=== PATIENT | male | born 1945 | race Caucasian/White ===

== ENCOUNTER 2017-02-08 08:25 | Day surgery (SDC) | payer OTHER, MEDICARE ==
[~2017-02-08] VITALS: Ht 195.6 cm; Wt 102.1 kg
[~2017-02-08 08:25] MED LIST: ACID CONTROL150 MG PO; ADALAT CC 30 MG30 MG PO; ALLOPURINOL300 MG PO; BENADRYL25 MG PO; BUDEPRION SR150 MG PO; CLONAZEPAM0.5 MG PO; COUMADIN1 MG PO; COUMADIN5 MG PO; CYCLOBENZAPRINE10 MG PO; CYMBALTA60 MG PO; DAILY MULTIPLE1 EACH PO; HYDROCHLOROTHIA25 MG PO; IRON325 M1 PO; MELOXICAM15 MG PO; MINIPRESS1 MG PO; MOTRIN800 MG PO; NAPROXEN375 MG PO; NIFEDIAC CC30 MG; OMEPRAZOLE40 M1 PO; OXYCODONE HCL5 MG PO; OXYCONTIN10 MG PO; PERCOCET 7.51 TABLET PO; PRAVACHOL40 MG PO; PROTONIX40 MG PO; REFRESH OPTIVE10 M1 LEFT EYE; SENNA-TIME S T1 EACH PO; SOMA350 MG PO; TENORMIN25 MG PO; TOPAMAX25 MG PO; VENLAFAXINE HC150 M1 PO
== END 2017-02-08 10:25 | disposition home or self-care (01) ==
LOC: PAIN 08:25 → SDC 09:00 → PAIN 10:25
DX: M47.812 Spondylosis without myelopathy or radiculopathy, cervical region (principal); M47.816 Spondylosis without myelopathy or radiculopathy, lumbar region; M54.2 Cervicalgia; G89.29 Other chronic pain; F41.8 Other specified anxiety disorders; E78.5 Hyperlipidemia, unspecified; I10 Essential (primary) hypertension; K21.9 Gastro-esophageal reflux disease without esophagitis; Z86.718 Personal history of other venous thrombosis and embolism; I25.10 Atherosclerotic heart disease of native coronary artery without angina pectoris; E11.9 Type 2 diabetes mellitus without complications; Z87.891 Personal history of nicotine dependence; Z79.01 Long term (current) use of anticoagulants; Z79.82 Long term (current) use of aspirin; Z79.891 Long term (current) use of opiate analgesic; Z79.899 Other long term (current) drug therapy
CPT/HCPCS: J1030; S0020

== ENCOUNTER 2017-02-15 07:13 | Day surgery (SDC) | payer OTHER, MEDICARE ==
[~2017-02-15] VITALS: Ht 195.6 cm; Wt 102.1 kg
== END 2017-02-15 09:25 | disposition home or self-care (01) ==
LOC: PAIN 07:13 → SDC 08:00 → PAIN 09:25
DX: I80.209 Phlebitis and thrombophlebitis of unspecified deep vessels of unspecified lower extremity (principal); Z53.9 Procedure and treatment not carried out, unspecified reason
CPT/HCPCS: J1030; J2250; J3010; S0020

== ENCOUNTER → 2017-02-16 | Outpatient (CLI) | payer OTHER, MEDICARE | END | disposition home or self-care (01) | LOC: NUC 08:31 | DX: M48.56XD Collapsed vertebra, not elsewhere classified, lumbar region, subsequent encounter for fracture with routine healing (principal); M47.896 Other spondylosis, lumbar region; Z96.651 Presence of right artificial knee joint; R93.7 Abnormal findings on diagnostic imaging of other parts of musculoskeletal system | CPT/HCPCS: 78306; A9503 ==

== ENCOUNTER 2017-07-24 13:27 | Emergency (ER) | payer OTHER, MEDICARE ==
[~2017-07-24] VITALS: Ht 193 cm; Wt 103.6 kg
[2017-07-24 13:57] LABS: EOSINOPHIL (%) 4.3 % (0-5); EOSINOPHIL COUNT 0.2 K/uL (0-0.3); HEMATOCRIT 42.9 % (38.0-50.0); IMMATURE GRANULOCYTE (%) 0.4 % (0.0-0.7); INSTRUMENT ABS NEUTROPHIL CT 2.4 K/uL; LYMPHOCYTE COUNT 1.8 K/uL (1.0-2.8); MCHC 33.8 G/DL (30.0-36.0); MCV 88.6 FL (86-99); MEAN PLAT.VOLUME 9.7 uM^3 (9.0-12.4); MONOCYTE (%) 7.6 % (3-12); MONOCYTE COUNT 0.4 K/uL (0-0.8); NEUTROPHIL (%) 50.5 % (45-76); NEUTROPHIL COUNT 2.4 K/uL (1.8-6.4); PLATELET COUNT 155 K/uL (156-360); RBC DIS.WIDTH-CV 13.2 % (11.8-14.6); RBC DIS.WIDTH-SD 42.9 % (39-53); RED BLOOD COUNT 4.84 M/uL (4.00-5.50); WHITE BLOOD COUNT 4.8 K/uL (4.1-10.2)
[2017-07-24 14:04] LABS: CHLORIDE 108 mEq/L (99-109); POTASSIUM 4.4 mEq/L (3.7-5.4); SODIUM 142 mEq/L (136-147)
[2017-07-24 14:06] LABS: GLUCOSE 91 mg/dL (70-99)
[2017-07-24 14:08] LABS: ANION GAP 10 MEQ/L (2-14)
[2017-07-24 14:10] LABS: GFR ESTIMATE (CALCULATED) > 59 mL/min/
[2017-07-24 14:11] LABS: UREA NITROGEN (BUN) 12 mg/dL (9-23)
[2017-07-24 14:28] LABS: PROTHROMBIN TIME 11.5 SEC (10.2-12.9)
[2017-07-24 14:30] LABS: PTT 30.6 SEC (25-37)
[2017-07-24] MEDS ORDERED: ASPIR 8181 M1 PO (14:59)
[2017-07-24] MEDS ORDERED: B-COMPLEX-VITA1 EACH PO (15:00)
[2017-07-24] MEDS ORDERED: FISH OIL 1,0001 EA10 PO (15:01)
[2017-07-24 15:43] VITALS: BP 133/68
== END 2017-07-24 16:22 | disposition home or self-care (01) ==
LOC: EME 13:27
PROVIDERS: Emergency Medicine
DX: T18.128A Food in esophagus causing other injury, initial encounter (principal); K21.9 Gastro-esophageal reflux disease without esophagitis; I10 Essential (primary) hypertension; E78.5 Hyperlipidemia, unspecified; Z86.73 Personal history of transient ischemic attack (TIA), and cerebral infarction without residual deficits; M10.9 Gout, unspecified; F32.9 Major depressive disorder, single episode, unspecified; I25.10 Atherosclerotic heart disease of native coronary artery without angina pectoris; Z95.5 Presence of coronary angioplasty implant and graft; Z87.891 Personal history of nicotine dependence; F41.9 Anxiety disorder, unspecified
CPT/HCPCS: 71010; 80048; 85025; 85610; 85730; 88305; 93005; 99281; 99285; J0330; J2405; J3010; J7030

== ENCOUNTER 2018-02-24 12:12 | Emergency (ER) | payer OTHER, MEDICARE ==
[~2018-02-24] VITALS: Ht 193 cm; Wt 104.5 kg
[~2018-02-24 12:12] MED LIST changes: +ASPIR 8181 M1 PO; +B-COMPLEX-VITA1 EACH PO; +FISH OIL 1,0001 EA10 PO
[2018-02-24 12:58] VITALS: BP 156/89
[2018-02-24 13:06] LABS: HEMATOCRIT 43.4 % (38.0-50.0); HEMOGLOBIN 15.3 G/DL (12.5-16.6); MCH 30.4 PG (29.0-34.0); MCHC 35.3 G/DL (30.0-36.0); MCV 86.1 FL (86-99); PLATELET COUNT 181 K/uL (156-360); RBC DIS.WIDTH-SD 46.5 % (39-53); RED BLOOD COUNT 5.04 M/uL (4.00-5.50)
[2018-02-24 13:32] LABS: CHLORIDE 107 mEq/L (99-109); SODIUM 143 mEq/L (136-147)
[2018-02-24 13:34] LABS: GLUCOSE 92 mg/dL (70-99)
[2018-02-24 13:38] LABS: CREATININE 0.8 mg/dL (0.6-1.3); GFR ESTIMATE (CALCULATED) > 59 mL/min/ (58.99-99999); UREA NITROGEN (BUN) 21 mg/dL (9-23)
== END 2018-02-24 14:49 | disposition short-term general hospital (02) ==
LOC: EME 12:12
PROVIDERS: Emergency Medicine
PROC: 0DJ08ZZ Inspection of Upper Intestinal Tract, Via Natural or Artificial Opening Endoscopic (ICD-10-PCS; principal; 2018-02-24)
DX: T18.128A Food in esophagus causing other injury, initial encounter (principal); E78.5 Hyperlipidemia, unspecified; M10.9 Gout, unspecified; F41.9 Anxiety disorder, unspecified; Z79.82 Long term (current) use of aspirin; Z87.891 Personal history of nicotine dependence; Z95.5 Presence of coronary angioplasty implant and graft; Z90.49 Acquired absence of other specified parts of digestive tract; Z85.9 Personal history of malignant neoplasm, unspecified
CPT/HCPCS: 80048; 85027; 99281; 99285; J2405; J7030